=== PATIENT | male | born 1975 | race Hispanic/Latino ===

== ENCOUNTER 2021-12-18 20:05 | Emergency (ER) | payer SELFPAY ==
[2021-12-18 20:59] VITALS: BP 135/100
[2021-12-18] MEDS ORDERED: IBUPROFEN 800 MG TAB PO ONE (21:17)
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
--- NOTE | 2021-12-18 21:52 | XRay Report ---
Right shoulder 3 views INDICATION: Right shoulder pain FINDINGS: Glenohumeral joint and AC joint appear normal. No acute fracture or dislocation. Signer Name: Dragan Singh MD Signed: 12/18/2021 9:48 PM Workstation Name: [id number]
== END 2021-12-18 22:14 | disposition home or self-care (01) ==
LOC: ED 20:05
DX: S49.91XA Unspecified injury of right shoulder and upper arm, initial encounter (principal); X58.XXXA Exposure to other specified factors, initial encounter; Y93.89 Activity, other specified; Y92.89 Other specified places as the place of occurrence of the external cause; Y99.8 Other external cause status
CPT/HCPCS: 99284